=== PATIENT | female | born 1940 | race Caucasian/White ===

== ENCOUNTER → 2017-08-11 | Outpatient (CLI) | payer MEDICARE ==
[2017-08-11 11:59] LABS: BASOPHILS # (AUTO) 0.1 10^3/uL (0.0-0.1); BASOPHILS % (AUTO) 1 % (0-10); EOSINOPHILS # (AUTO) 0.3 10^3/uL (0.0-0.3); EOSINOPHILS % (AUTO) 5 % (0-10); HEMATOCRIT 30 % (35-52); HEMOGLOBIN 9.2 G/DL (11.5-16.0); LYMPHOCYTES % (AUTO) 33 % (12-44); MEAN CORPUSCULAR HEMOGLOBIN 23 PG (25-34); MEAN CORPUSCULAR HGB CONC 31 G/DL (32-36); MEAN CORPUSCULAR VOLUME 74 FL (80-99); MEAN PLATELET VOLUME 11.3 FL (7.4-10.4); MONOCYTES # (AUTO) 0.6 X 10^3 (0.0-1.0); MONOCYTES % (AUTO) 9 % (0-12); NEUTROPHILS # (AUTO) 3.2 X 10^3 (1.8-7.8); NEUTROPHILS % (AUTO) 53 % (42-75); PLATELET COUNT 491 10^3/uL (130-400); RED BLOOD COUNT 4.02 10^6/uL (4.35-5.85); RED CELL DISTRIBUTION WIDTH 17.6 % (10.0-14.5)
[2017-08-11 12:15] LABS: BUN/CREATININE RATIO 29; CALCIUM 9.7 MG/DL (8.5-10.1); CARBON DIOXIDE 25 MMOL/L (21-32); CHLORIDE 100 MMOL/L (98-107); CREATININE SERUM 0.84 MG/DL (0.60-1.30); GFR ESTIMATED > 60; GLUCOSE 99 MG/DL (70-105); POTASSIUM 3.3 MMOL/L (3.6-5.0); SODIUM 139 MMOL/L (135-145)
== END ==
LOC: LAB 11:44
PROVIDERS: ATTEND Internal Medicine Critical Care Medicine
DX: R06.00 Dyspnea, unspecified (principal); R91.8 Other nonspecific abnormal finding of lung field
CPT/HCPCS: 36415; 80048; 83880; 85025

== ENCOUNTER → 2017-09-20 | Outpatient (CLI) | payer MEDICARE ==
[~2017-09-20] MED LIST: IOHEXOL 350 MG/ML 100 ML (OMNIPAQUE 350) VIAL IV ONE; NS 250 ML (IVPB) BAG IV ONE
--- NOTE | 2017-09-20 16:54 | Diagnostic Imaging Report ---
PROCEDURE: CT chest with contrast only. TECHNIQUE: Multiple contiguous axial images were obtained through the chest after administration of intravenous contrast. INDICATION: Shortness of air. Fatigue. History of infiltrate seen on previous CT. COMPARISON: 07/20/2017. FINDINGS: Cardiomediastinal structures show moderate cardiomegaly. There is no large pericardial effusion. 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 There is moderate calcified coronary and aortic atherosclerosis. No pathologically enlarged or morphologically abnormal adenopathy is seen within the mediastinum, gavin, nor axillae. Lung mosquera show trace left effusion. No pneumothorax is seen on either side. Since the previous exam, there has been interval clearing of previously described ill-defined ground-glass densities in the right middle lobe and base of the right upper lobe described on prior exam. No focal consolidation is seen on today's study. There are two small 2 mm subpleural micronodules seen within the lateral margins of the right upper lobe (image 20, series 2). These are stable compared to prior exam. No other suspicious pulmonary nodules or masses are identified. Bony structures show no acute abnormalities. No lytic or blastic osseous lesions are seen. Included portions of the upper abdomen show reflux of contrast into the IVC and hepatic veins. IMPRESSION: 1. Interval resolution of previously described ill-defined infiltrate-appearing ground-glass densities in the right upper and right middle lobes. 2. Punctate micronodules within the lateral margins of the right upper lobe. Please see below for followup recommendations. 3. Trace left effusion. 4. Moderate cardiomegaly. 5. Reflux of contrast in the IVC and hepatic veins. Findings can be seen with right heart failure. Dictated by: Dictated on workstation # [id number]
== END ==
LOC: RAD 14:17
PROVIDERS: ATTEND Nurse Practitioner Family
DX: R91.8 Other nonspecific abnormal finding of lung field (principal); R53.83 Other fatigue; I51.7 Cardiomegaly
CPT/HCPCS: 71260

== ENCOUNTER → 2022-06-03 | Outpatient (CLI) | payer MEDICARE | LOC: CARD 14:25 | PROVIDERS: ATTEND Internal Medicine Cardiovascular Disease | DX: I08.3 Combined rheumatic disorders of mitral, aortic and tricuspid valves (principal); I11.9 Hypertensive heart disease without heart failure; I25.10 Atherosclerotic heart disease of native coronary artery without angina pectoris | CPT/HCPCS: 93306 ==